=== PATIENT | male | born 1960 | race Caucasian/White ===

== ENCOUNTER 2021-12-23 09:00 | Outpatient (CLI) | payer MEDICARE ==
--- NOTE | 2021-12-23 16:25 | Ultrasound Report ---
PROCEDURE: Abdomen Limited INDICATIONS: RIGHT UPPER QUADRANT PAIN TECHNIQUE: Real-time focused scanning was performed of the abdomen, with image documentation. COMPARISON: None FINDINGS: Liver length of 17.7 cm. Liver is mildly echogenic. No suspicious focal liver lesion visualized. Several gallstones are present. Shadowing from the stones limits evaluation of the gallbladder wall, however one portion of the wall appears minimally thickened measuring 4 mm. Overall, the gallbladder does not appear distended. No sonographic Shin sign demonstrated. Pancreas not well visualized due to bowel gas. No biliary ductal dilation. Extrahepatic duct measures 5 mm. Right renal length of 12.6 cm. No right hydronephrosis or evidence of nephrolithiasis. IMPRESSION: 1. Cholelithiasis. Minimal thickening of a portion of the gallbladder wall is present, however the ga llbladder lumen does not appear distended and a sonographic Shin sign was not elicited during the e xam. Findings are considered low probability for acute cholecystitis however clinical correlation is recommended. 2. The liver is echogenic, a nonspecific finding commonly seen in the setting of steatosis. Reviewed by: Reymundo Chappell MD on 12/23/2021 4:24 PM PDT Approved by: Reymundo Chappell MD on 12/23/2021 4:24 PM PDT Station ID: [id number]
== END 2021-12-23 09:01 | disposition home or self-care (01) ==
LOC: DI 09:00
PROVIDERS: ATTEND Internal Medicine
DX: K80.20 Calculus of gallbladder without cholecystitis without obstruction (principal); R10.11 Right upper quadrant pain

== ENCOUNTER 2021-12-29 16:56 | Outpatient (CLI) | payer MEDICARE ==
--- NOTE | 2021-12-30 17:51 | Ultrasound Report ---
PROCEDURE: Carotid Doppler Complete INDICATIONS: RETINAL HEMMORRHAGE TECHNIQUE: Color and pulse Doppler interrogation was performed of both carotid systems, with image documentation and velocity measurements. COMPARISON: None. FINDINGS: Right side: Brachial blood pressure: 115/60 mm Hg. Common carotid artery peak systolic velocity: 70 cm/sec. Internal carotid artery peak systolic velocity: 61 cm/sec. Internal carotid artery end diastolic velocity: 21 cm/sec. External carotid artery peak systolic velocity: 118 cm/sec. ICA/CCA peak systolic ratio: 1.3 . Keita scale imaging description: Moderate plaque at the bifurcation Percent internal carotid artery stenosis: Less than 50% . Vertebral artery: Flow direction is antegrade. Left side: Brachial blood pressure: 114/64 mm Hg. Common carotid artery peak systolic velocity: 86 cm/sec. Internal carotid artery peak systolic velocity: 88 cm/sec. Internal carotid artery end diastolic velocity: 21 cm/sec. External carotid artery peak systolic velocity: 102 cm/sec. ICA/CCA peak systolic ratio: 1.0 . Keita scale imaging description: Under plaque at the bifurcation Percent internal carotid artery stenosis: Less than 50% . Vertebral artery: Flow direction is antegrade. IMPRESSION: Less than 50% stenosis of the internal carotid arteries bilaterally. The estimate of stenosis included in the report of the imaging study was calculated using the NASCET method Reviewed by: Arlin Bhakta MD on 12/30/2021 5:49 PM PDT Approved by: Arlin Bhakta MD on 12/30/2021 5:49 PM PDT Station ID: [id number]
== END 2021-12-29 16:57 | disposition home or self-care (01) ==
LOC: DI 16:56
PROVIDERS: ATTEND Ophthalmology
DX: H35.62 Retinal hemorrhage, left eye (principal)
CPT/HCPCS: 93880